=== PATIENT | female | born 1965 | race Caucasian/White ===

== ENCOUNTER 2023-11-15 11:14 | Emergency (ER) | payer OTHER ==
[~2023-11-15] VITALS: Ht 165.1 cm; Wt 93.3 kg
[2023-11-15 11:19] VITALS: TEMP 97.8
[2023-11-15] MEDS: ibuprofen tablet 400 MG TABLET PO ONE ×2 (12:18→12:23)
[2023-11-15 13:10] VITALS: BP 145/99; PULSE 79; RESP 16; O2SAT 98
== END 2023-11-15 13:13 | disposition home or self-care (01) ==
LOC: ER 11:15
DX: S93.602A Unspecified sprain of left foot, initial encounter (principal); S93.601A Unspecified sprain of right foot, initial encounter; W10.9XXA Fall (on) (from) unspecified stairs and steps, initial encounter; Y93.89 Activity, other specified; Y92.89 Other specified places as the place of occurrence of the external cause; Y99.8 Other external cause status
CPT/HCPCS: 73610; 73630; 99284; L3260; A6449